=== PATIENT | female | born 1935 | race Caucasian/White ===

== ENCOUNTER 2020-09-08 10:09 | Outpatient (CLI) | payer MEDICARE ==
[2020-09-08] MEDS ORDERED: GADOTERATE 7.5 MMOL/15 ML VIAL ONE (12:03)
== END 2020-09-08 23:59 | disposition home or self-care (01) ==
LOC: CFH 10:09
PROVIDERS: ATTEND Surgery
DX: C50.511 Malignant neoplasm of lower-outer quadrant of right female breast (principal); R92.2 Inconclusive mammogram; N63.13 Unspecified lump in the right breast, lower outer quadrant
CPT/HCPCS: 77049; A9575; C8937; C8908

== ENCOUNTER → 2020-09-15 | Outpatient (CLI) | payer MEDICARE ==
[~2020-09-15] MED LIST: ALBU5SOL6 INH; AMLO-150 PO; ASPI1TAB87 PO; FURO20TA3 PO; GOLD1CAP5 PO; HYDR-3342 PO; IPRA15SP INH; LUTE20TA PO; MELO7.5T31 PO; MV-M1TAB52 PO; OMEG-69 PO; TURM500C4 PO; [UNRECOGNIZED DRUG - CODE] PO; [UNRECOGNIZED DRUG - OTHER] PO
[2020-09-15 13:08] LABS: ALBUMIN 4.2 g/dL (3.4-5.0); ANION GAP 5 mmol/L (5-15); CALCIUM 9.8 mg/dL (8.5-10.1); CHLORIDE 105 mmol/L (98-107)
[2020-09-15 13:11] LABS: ALANINE AMINOTRANSFERASE 21 U/L (12-78); ALKALINE PHOSPHATASE 82 U/L (45-117); BILIRUBIN,TOTAL 0.6 mg/dL (0.2-1.0); CREATININE 0.85 mg/dL (0.55-1.02); TOTAL PROTEIN 7.5 g/dL (6.4-8.2)
== END | disposition home or self-care (01) ==
LOC: STAR 11:29
PROVIDERS: ATTEND Surgery
DX: Z01.812 Encounter for preprocedural laboratory examination (principal); C50.511 Malignant neoplasm of lower-outer quadrant of right female breast; Z20.822 Contact with and (suspected) exposure to COVID-19
CPT/HCPCS: 36415; 80053; 93005; U0003

== ENCOUNTER 2020-09-21 06:49 | Day surgery (SDC) | payer MEDICARE ==
[~2020-09-21] VITALS: Ht 170.2 cm; Wt 58.8 kg
[2020-09-21 07:16] VITALS: BP 161/68
[2020-09-21] MEDS ORDERED: CHLORHEXIDINE 15 ML UDC PO ONE (07:30)
[2020-09-21] MEDS ORDERED: LACTATED RINGERS 1,000 ML IV SCH (07:30)
[2020-09-21] MEDS ORDERED: FENTANYL PF 250 MCG/5ML ONE (08:41)
[2020-09-21] MEDS ORDERED: PROMETHAZINE 25 MG/ML, 1ML IVPush PRN (09:00)
[2020-09-21] MEDS ORDERED: MEPERIDINE/PF 25MG/0.5ML IVPush PRN (09:00)
[2020-09-21] MEDS ORDERED: LABETALOL 5MG/ML, 20ML IV PRN (09:00)
[2020-09-21] MEDS ORDERED: ACETAMINOPHEN 325 MG TABLET PO PRN (09:00)
[2020-09-21] MEDS ORDERED: FENTANYL PF 100 MCG/2ML IV PRN (09:00)
[2020-09-21] MEDS ORDERED: HALOPERIDOL 5 MG/ML IV PRN (09:00)
[2020-09-21] MEDS ORDERED: hydrALAzine 20 MG/ML, 1ML IV PRN (09:00)
[2020-09-21] MEDS ORDERED: DIPHENHYDRAMINE 50 MG/ML, 1ML IVPush PRN (09:00)
[2020-09-21] MEDS ORDERED: OXYcodone 5 MG/5 ML ORAL.SOL UDC PO PRN (09:00)
[2020-09-21] MEDS ORDERED: HYDROmorphone 1 MG/ML, 1ML INJ IVPush PRN (09:00)
[2020-09-21] MEDS ORDERED: BUPIVACAINE/PF 0.5% ONE (09:11)
[2020-09-21] MEDS ORDERED: ISOSULFAN BLUE 10 MG/ML, 5ML IV ONE (09:11)
[2020-09-21] MEDS ORDERED: EPINEPHRINE 1 MG/ML, 1ML ONE (09:12)
[2020-09-21] MEDS ORDERED: DEXAMETHASONE 4 MG/ML, 1ML ONE (09:33)
[2020-09-21] MEDS ORDERED: PROPOFOL 10 MG/ML, 20ML ONE (09:33)
[2020-09-21] MEDS ORDERED: ROCURONIUM 10 MG/ML,10ML ONE (09:33)
[2020-09-21] MEDS ORDERED: ONDANSETRON 2MG/ML, 2ML ONE (09:33)
[2020-09-21] MEDS ORDERED: CEFAZOLIN 1,000 MG ONE (09:33)
[2020-09-21] MEDS ORDERED: NEOSTIGMINE 1 MG/ML, 10ML ONE (09:33)
[2020-09-21] MEDS ORDERED: GLYCOPYRROLATE 0.2MG/1ML, 5ML ONE (09:33)
[2020-09-21] MEDS ORDERED: HYDR-1067 PO (11:32)
[2020-09-21] MEDS ORDERED: ONDA4TAB7 PO (11:32)
== END 2020-09-21 13:35 | disposition home or self-care (01) ==
LOC: OUT 06:49 → EDSTATUS 11:30 → OUT 13:35
PROVIDERS: ATTEND Surgery
DX: C50.511 Malignant neoplasm of lower-outer quadrant of right female breast (principal); C77.3 Secondary and unspecified malignant neoplasm of axilla and upper limb lymph nodes; I10 Essential (primary) hypertension; J44.9 Chronic obstructive pulmonary disease, unspecified; Z17.0 Estrogen receptor positive status [ER+]; Z79.1 Long term (current) use of non-steroidal anti-inflammatories (NSAID); Z79.82 Long term (current) use of aspirin; Z79.899 Other long term (current) drug therapy; Z98.890 Other specified postprocedural states
CPT/HCPCS: 19303; 38525; 38792; 76098; 88305; 88307; 88333; A9541; C1729; J0171; J0690; J1100; J2405; J2704; J2710; J3010; J7120

== ENCOUNTER 2020-10-13 10:18 | Outpatient (CLI) | payer MEDICARE ==
[~2020-10-13 10:18] MED LIST changes: +HYDR-2214 PO; +ONDA4TAB7 PO
== END 2020-10-13 23:59 | disposition home or self-care (01) ==
LOC: ROC 10:18
PROVIDERS: ATTEND Radiology Radiation Oncology
DX: C50.111 Malignant neoplasm of central portion of right female breast (principal); J44.9 Chronic obstructive pulmonary disease, unspecified; I10 Essential (primary) hypertension; Z17.0 Estrogen receptor positive status [ER+]; Z79.82 Long term (current) use of aspirin; Z79.1 Long term (current) use of non-steroidal anti-inflammatories (NSAID); Z79.899 Other long term (current) drug therapy; Z98.890 Other specified postprocedural states
CPT/HCPCS: G0463

== ENCOUNTER 2020-10-25 06:08 | Day surgery (SDC) | payer MEDICARE ==
[~2020-10-25] VITALS: Ht 170.2 cm; Wt 59.7 kg
[2020-10-25 07:00] VITALS: BP 156/79
[2020-10-25] MEDS ORDERED: MIDAZOLAM 1 MG/ML, 5ML ONE (08:23)
[2020-10-25] MEDS ORDERED: NALOXONE 1 MG/ML, 2ML ONE (08:23)
[2020-10-25] MEDS ORDERED: FLUMAZENIL 0.1 MG/1 ML, 5ML ONE (08:23)
[2020-10-25] MEDS ORDERED: FENTANYL PF 100 MCG/2ML ONE (08:23)
== END 2020-10-25 11:45 | disposition home or self-care (01) ==
LOC: OUT 06:08
PROVIDERS: ATTEND Internal Medicine Hematology & Oncology
DX: M89.9 Disorder of bone, unspecified (principal); C79.51 Secondary malignant neoplasm of bone; C50.811 Malignant neoplasm of overlapping sites of right female breast; I10 Essential (primary) hypertension; Z17.0 Estrogen receptor positive status [ER+]; Z90.11 Acquired absence of right breast and nipple
CPT/HCPCS: 20225; 77012; 88307; 88311; 99156; 99157; J2250; J3010; J2310